=== PATIENT | male | born 1985 | race African-American/Black ===

== ENCOUNTER 2016-10-15 11:49 | Emergency (ER) | payer SELFPAY ==
[2016-10-15] MEDS ORDERED: AZITHROMYCIN 250 MG TABLET PO ONE (14:14)
[2016-10-15] MEDS ORDERED: CEFTRIAXONE INJ 250 MG VIAL IM ONE (14:14)
[2016-10-15] MEDS ORDERED: LIDOCAINE 1% INJ-PF (10 MG/ML) 30 ML SDV INJ ONE (14:14)
--- NOTE | 2016-10-15 14:21 | ER Document Report ---
ED GI/ - General Chief Complaint: Pain With Urination Stated Complaint: URINARY PROBLEMS Time Seen by Provider: 10/15/16 13:43 Mode of Arrival: Ambulatory Information source: Patient Notes: 31-year-old male presents to ED for pain with urination bilateral pelvic pain and swelling to pelvic area and penile discharge. TRAVEL OUTSIDE OF THE [place] IN LAST 30 DAYS: No - HPI Patient complains to provider of: Groin pain, Other - Penile pain. pain penile discharge Onset: Last week Timing/Duration: Gradual Quality of pain: Pressure, Sharp Severity at maximum: Moderate Severity in ED: Moderate Pain Level: 4 Location: Pelvis, Other - Penile pain and drainage Sexual history: Active, Unprotected intercourse Associated symptoms: Penile discharge Exacerbated by: Movement, Walking Relieved by: Denies Similar symptoms previously: Yes Recently seen / treated by doctor: No - Related Data Allergies/Adverse Reactions: No Known Allergies Allergy (Verified 10/15/16 11:55) Past Medical History - General Information source: Patient - Social History Smoking Status: Current Every Day Smoker Cigarette use (# per day): Yes - 1/2 Pack per day Chew tobacco use (# tins/day): No Smoking Education Provided: Yes - less than 2 minutes Frequency of alcohol use: None Drug Abuse: None Lives with: Spouse/Significant other Family History: Arthritis, CVA, Hyperlipidemia. denies: CAD, COPD, DM, Hypertension, Malignancy, Thyroid Disfunction Patient has suicidal ideation: No Patient has homicidal ideation: No - Past Medical History Cardiac Medical History: Reports: None Pulmonary Medical History: Reports: Hx Pneumonia EENT Medical History: Reports: None Neurological Medical History: Reports: None Endocrine Medical History: Reports: None Renal/ Medical History: Reports: None Malignancy Medical History: Reports None GI Medical History: Reports: None Musculoskeltal Medical History: Reports None Skin Medical History: Reports None Psychiatric Medical History: Reports: None Traumatic Medical History: Reports: None Infectious Medical History: Reports: None Surgical Hx: Negative Past Surgical History: Reports: None - Immunizations Hx Diphtheria, Pertussis, Tetanus Vaccination: No Review of Systems - Review of Systems Constitutional: No symptoms reported EENT: No symptoms reported Cardiovascular: No symptoms reported Respiratory: No symptoms reported Gastrointestinal: No symptoms reported Genitourinary: No symptoms reported Male Genitourinary: Penile discharge, Other - Pain groin Musculoskeletal: No symptoms reported Skin: No symptoms reported Hematologic/Lymphatic: No symptoms reported Neurological/Psychological: No symptoms reported -: Yes All other systems reviewed and negative Physical Exam - Vital signs Vitals: Temp Pulse Resp BP Pulse Ox 97.7 F 58 L 16 125/65 97 10/15/16 11:55 10/15/16 11:55 10/15/16 11:55 10/15/16 11:55 10/15/16 11:55 Interpretation: Normal - General General appearance: Appears well, Alert - HEENT Head: Normocephalic, Atraumatic Eyes: Normal Pupils: PERRL - Respiratory Respiratory status: No respiratory distress Chest status: Nontender Breath sounds: Normal Chest palpation: Normal - Cardiovascular Rhythm: Regular Heart sounds: Normal auscultation Murmur: No - Abdominal Inspection: Normal Distension: No distension Bowel sounds: Normal Tenderness: Nontender Organomegaly: No organomegaly - Genitourinary Inspection: Penile discharge Tenderness: Nontender, Epididymis tender Cremasteric reflex: Normal Scrotum: Normal - Back Back: Normal, Nontender - Extremities General upper extremity: Normal inspection, Nontender, Normal color, Normal ROM , Normal temperature General lower extremity: Normal inspection, Nontender, Normal color, Normal ROM , Normal temperature, Normal weight bearing. No: Erin's sign - Neurological Neuro grossly intact: Yes Cognition: Normal Orientation: AAOx4 Scuddy Coma Scale Eye Opening: Spontaneous Leisa Coma Scale Verbal: Oriented Leisa Coma Scale Motor: Obeys Commands Leisa Coma Scale Total: 15 Speech: Normal Motor strength normal: LUE, RUE, LLE, RLE Sensory: Normal - Psychological Associated symptoms: Normal affect, Normal mood - Skin Skin Temperature: Warm Skin Moisture: Dry Skin Color: Normal Course - Re-evaluation Re-evalutation: 10/15/16 16:52 Discussed ultrasound and lab results with patient. Patient was treated with Rocephin and azithromycin for his GC and chlamydia. Patient was instructed no sexual intercourse with his partner until they have both been treated and waited 48 hours. Patient instructed to please use protection in the future to prevent this. - Vital Signs Vital signs: Temp Pulse Resp BP Pulse Ox 97.7 F 58 L 16 125/65 97 10/15/16 11:55 10/15/16 11:55 10/15/16 13:55 10/15/16 11:55 06/05/17 11:55 - Laboratory Laboratory results interpreted by me: 10/15/16 14:20 Chlamydia DNA (PCR) DETECTED H N.gonorrhoeae DNA (PCR) DETECTED H - Diagnostic Test Radiology reviewed: Image reviewed, Reports reviewed Discharge - Discharge Clinical Impression: Epididymitis, Epididymal cyst, Acute gonorrhea of genitourinary tract, Chlamydia Condition: Stable Disposition: HOME, SELF-CARE Instructions: Family Physicians / Practices Additional Instructions: Epididymitis You have epididymitis. This is an inflammation of the organ just behind the testicle, called the epididymis. It can be due to infection in the bladder or prostate. Many cases are simply inflammation and are not caused by germs. Epididymitis often develops after heavy lifting or vigorous exercise. Antibiotics and antiinflammatory medication are often prescribed. Elevation of the scrotum with a jock-strap or tight briefs will help with the pain. Pain medication may be required. Either cold packs or warm sitz baths can help with the pain -- ask your doctor which he recommends for your case. It may take 10 to 14 days until the pain is gone. Avoid heavy lifting during this time. Call the doctor or go to the hospital if you develop fever, increasing pain , or severe swelling, or if you fail to improve as expected. Rocephin You have been given an injection of an antibiotic called Rocephin ( ceftriaxone). Sometimes the injection must be combined with antibiotic pills. For some infections, such as an uncomplicated ear infection, Rocephin provides all the antibiotic that's needed. The antibiotic will be in your body for about two days. For serious infections, we usually repeat doses of Rocephin daily. Side effects are very unusual following a shot. Women may develop vaginal yeast infections, and babies can get yeast (thrush) in the mouth following the use of antibiotics. Contact your physician if you have symptoms with this medication. Allergy to this antibiotic can result in hives, wheezing, faintness, or itching. If symptoms of allergy occur, call the doctor at once. AZITHROMYCIN: Azithromycin (Zithromax) is a broad spectrum antibiotic in the same class as erythromycin. It can treat a variety of bacterial infections, but is most frequently used for respiratory infections. Azithromycin is extremely long-lasting. It accumulates in body tissues and continues to kill bacteria for many days. In order to improve absorption, Azithromycin should be taken at least one hour before or two hours after a meal. It does not have the same strong tendency to upset the stomach as erythromycin and is usually very well tolerated. Patients who have had a rash or other true allergic reactions to erythromycin should not take this medication. Call if you develop gastrointestinal distress, severe diarrhea, rash, hives, itching, or shortness of breath. FOLLOW-UP CARE: If you have been referred to a physician for follow-up care, call the physician s office for an appointment as you were instructed or within the next two days. If you experience worsening or a significant change in your symptoms, notify the physician immediately or return to the Emergency Department at any time for re-evaluation. Forms: Smoking Cessation Education
[2016-10-15 14:58] LABS: APPEARANCE,URINE CLEAR; BILIRUBIN,URINE NEGATIVE (NEGATIVE); GLUCOSE, URINE NEGATIVE (NEGATIVE); KETONES,URINE NEGATIVE (NEGATIVE); LEUKOCYTE ESTERASE,URINE NEGATIVE (NEGATIVE); NITRITE,URINE NEGATIVE (NEGATIVE); PROTEIN,URINE NEGATIVE (NEGATIVE); URINE SPECIFIC GRAVITY 1.014; UROBILINOGEN,URINE NEGATIVE mg/dL (<2.0)
--- NOTE | 2016-10-15 15:52 | RADIOLOGY REPORT (SQ) ---
EXAM DESCRIPTION: U/S SCROTUM W/O DOPPLER COMPLETED DATE/TIME: 10/15/2016 3:26 pm REASON FOR STUDY: minimal swelling and pain to groin COMPARISON: None. TECHNIQUE: Static and realtime pearson scale imaging of the scrotum and testes. Selected color Doppler and spectral images recorded to document blood flow. LIMITATIONS: None. FINDINGS: RIGHT: TESTICLE: Normal size, 39 x 28 x 20 mm. . Normal echotexture. Normal blood flow. No mass. EPIDIDYMIS: 8 x 10 x 12 mm. There is a 3 x 5 x 2 mm epididymal cyst. HYDROCELE OR VARICOCELE: No. HERNIA OR EXTRA-TESTICULAR MASS: No. OTHER: There is 11 x 18 x 6 mm hypoechoic area density just superior to the right testis with mobile debris within it. LEFT: TESTICLE: Normal size, 39 x 25 x 20 mm. Normal echotexture. Normal blood flow. No mass. There are couple small echogenic foci. The largest measures 2 mm. EPIDIDYMIS: Normal. 9 x 15 x 10 mm. HYDROCELE OR VARICOCELE: No. HERNIA OR EXTRA-TESTICULAR MASS: No. OTHER: There are lymph nodes in the left groin that are enlarged in the area the patient's complaint. IMPRESSION: 1. There is a small right epididymal cyst. 2. There is a small hypoechoic area containing mobile debris adjacent to the right testicle. This i s of uncertain etiology. Is there a history of prior trauma? If so, I suppose it could represent a resolving hematoma. 3. There may be a couple small calcifications in the left testicle. 4. There appear to be some enlarged lymph nodes in the left groin. TECHNICAL DOCUMENTATION: JOB ID: [id number]- All Rights Reserved
[2016-10-15 16:22] LABS: CHLAM PCR DETECTED (NOT DETECT)
[2016-10-15 16:57] VITALS: BP 118/62
== END 2016-10-15 16:40 | disposition home or self-care (01) ==
LOC: ER 11:49
DX: A54.23 Gonococcal infection of other male genital organs (principal); A56.19 Other chlamydial genitourinary infection; N50.3 Cyst of epididymis; F17.210 Nicotine dependence, cigarettes, uncomplicated
CPT/HCPCS: 99284; 96372; 81001; 87491; 87591; 76870; J3490; J0696

== ENCOUNTER 2017-08-06 10:26 | Emergency (ER) | payer SELFPAY ==
[2017-08-06 10:35] VITALS: BP 132/73
--- NOTE | 2017-08-06 11:00 | ER Document Report ---
ED Head/Face/Scalp Injury - General Chief Complaint: Head Injury Stated Complaint: HEAD PAIN Time Seen by Provider: 08/06/17 10:39 Mode of Arrival: Ambulatory Information source: Patient TRAVEL OUTSIDE OF THE [place] IN LAST 30 DAYS: No - HPI Patient complains to provider of: Other - headache Notes: Patient is here with complaints of a head injury that occurred 4 years ago. States that he was working on a car when he slipped and fell forward and hit his head on the [place]. This caused a small laceration to the forehead. He was never seen or evaluated for in the laceration had healed. He is on a blood thinners. He did not lose consciousness when the injury occurred. States since that time he has had occasional headaches around the site of the injury. He denies any significant headache currently. He also states that the area swelled up at one point and he was able to express some infectious type material from it. This was a long time ago and has not occurred again. He denies any blurred or loss vision. He denies blood thinners. He denies unilateral numbness, tingling, weakness. He denies fever. He denies chest pain or shortness of breath. 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 - Related Data Allergies/Adverse Reactions: No Known Allergies Allergy (Verified 08/06/17 10:30) Past Medical History - Social History Smoking Status: Current Every Day Smoker Chew tobacco use (# tins/day): No Frequency of alcohol use: None Drug Abuse: None Family History: Arthritis, CVA, Hyperlipidemia. denies: CAD, COPD, DM, Hypertension, Malignancy, Thyroid Disfunction Patient has suicidal ideation: No Patient has homicidal ideation: No Pulmonary Medical History: Reports: Hx Pneumonia Renal/ Medical History: Denies: Hx Peritoneal Dialysis - Immunizations Hx Diphtheria, Pertussis, Tetanus Vaccination: No Review of Systems - Review of Systems -: Yes All other systems reviewed and negative Physical Exam - Vital signs Vitals: Temp Pulse Resp BP Pulse Ox 98.5 F 57 L 16 132/73 H 98 08/06/17 10:32 08/06/17 10:32 08/06/17 10:32 08/06/17 10:32 08/06/17 10:32 - Notes Notes: GENERAL: alert, cooperative, nontoxic, no distress. HEAD: normocephalic, atraumatic. Site of old injury to the forehead. Well- healed scar. I do not appreciate any mass or lesion underneath the scar. There is no tenderness to palpation. There is no redness. EYES: conjunctiva pink without discharge, no external redness or swelling. Pupils are equal, round, reactive to light. EARS: no external swelling, no external redness NOSE: atraumatic, no external swelling MOUTH/THROAT: mucous membranes moist and pink, posterior pharynx without erythema, swelling, exudate. No trismus or drooling. NECK: soft, supple, full range of motion, no meningismus. CHEST: no distress, lungs clear and equal throughout. No wheezing, rales, rhonchi. CARDIAC: regular rate and rhythm, no murmur, normal capillary refill, normal pulses. No peripheral edema noted. BACK: full range of motion, no CVA tenderness. EXTREMITIES: full range of motion of all extremities. No redness, no swelling. NEURO: alert and oriented x 3, cranial nerves II through XII are grossly intact. Upper and lower extremities are equal throughout. Normal sensation. No focal deficits, full range of motion of all extremities. normal finger to nose. PYSCH: appropriate mood, affect. Patient is cooperative. SKIN: pink, warm, dry, no rash. Course - Re-evaluation Re-evalutation: 08/06/17 10:57 Patient is nontoxic appearing with stable vitals. He is here with complaints of pain around a site of an old head injury from 4 years ago. States that he occasionally has headaches around this area and wanted to be evaluated to make sure it was nothing serious. He sustained a head injury which was minor for years ago. There was no loss of consciousness. He has a nonfocal neurological exam at this time. He is having no nausea vomiting or other significant neurological symptoms. There is no signs of infection at this time. Patient requires no significant workup at this time. He will be discharged home with a pleural to primary care as well as neurology. Follow-up for worsening pain, high fever, numbness, tingling, weakness, blurred or loss vision, or for any further concerns. The patient is noted to have elevated blood pressure during today's emergency department visit. The patient was informed of this finding. The patient was instructed that this may be related to pre-hypertension and requires further evaluation with a primary care provider. The patient has no hypertensive symptoms at this time. The patient's emergency department workup and current diagnosis were explained to the patient and or family. Follow-up instructions were provided. Medications if prescribed were discussed. Instructions for when to return to the emergency department including specific worrisome symptoms were discussed with the patient and/or family. - Vital Signs Vital signs: Temp Pulse Resp BP Pulse Ox 98.5 F 57 L 16 132/73 H 98 08/06/17 10:32 08/06/17 10:32 08/06/17 10:32 08/06/17 10:32 08/06/17 10:32 Discharge - Discharge Clinical Impression: Headache Qualifiers: Headache type: unspecified Headache chronicity pattern: episodic headache Intractability: not intractable Qualified Code(s): R51 - Headache Condition: Stable Disposition: HOME, SELF-CARE Instructions: Headache ([facility]) Additional Instructions: Tylenol or Motrin as needed if you are having a headache. Follow-up with primary care or neurology if you continue to have intermittent headaches. Follow-up sooner for worsening pain, high fever, redness, swelling, numbness, tingling, weakness, persistent vomiting, or for any further concerns. Your blood pressure was elevated during today's visit. Have this rechecked with your doctor. Forms: Elevated Blood Pressure Referrals: [facility] [Provider Group] - Follow up as needed LILIA CHU MD [NO LOCAL MD] - Follow up as needed YOLANDA HOGAN MD [EMERITUS] - Follow up as needed
== END 2017-08-06 11:05 | disposition home or self-care (01) ==
LOC: ER 10:26
DX: R51 Headache (principal); R03.0 Elevated blood-pressure reading, without diagnosis of hypertension; F17.200 Nicotine dependence, unspecified, uncomplicated; Z79.01 Long term (current) use of anticoagulants; Z87.828 Personal history of other (healed) physical injury and trauma
CPT/HCPCS: 99283

== ENCOUNTER 2018-08-21 11:54 | Emergency (ER) | payer SELFPAY ==
[2018-08-21 12:09] VITALS: BP 122/70
[2018-08-21] MEDS ORDERED: IBUPROFEN 800 MG TABLET PO ONE (12:16)
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
== END 2018-08-21 13:15 | disposition home or self-care (01) ==
LOC: ER 11:54
DX: S63.91XA Sprain of unspecified part of right wrist and hand, initial encounter (principal); W22.09XA Striking against other stationary object, initial encounter
CPT/HCPCS: 99283

== ENCOUNTER 2019-02-18 06:05 | Emergency (ER) | payer SELFPAY ==
--- NOTE | 2019-02-18 07:57 | ER Document Report ---
ED General - General Chief Complaint: Abdominal Pain Stated Complaint: ABDOMINAL PAIN,NAUSEA,VOMITING Time Seen by Provider: 02/18/19 07:55 Mode of Arrival: Ambulatory Information source: Patient Notes: This 33-year-old male presents emergency department with complaints of abdominal pain nausea vomiting and loose stools that started early this a.m. Reports symptoms started approximately 0400. Reports he thinks it is from eating [employer] last night. Denies fever. No further vomiting since arrival but reports he still feels nauseated and has some abdominal tenderness with palpation. Denies past medical history of chronic abdominal issues. Denies pain with void, denies testicular pain. TRAVEL OUTSIDE OF THE [place] IN LAST 30 DAYS: No - HPI Onset: This morning Quality of pain: Achy Severity: Mild Associated symptoms: Nausea, Vomiting Exacerbated by: Denies Relieved by: Denies Similar symptoms previously: No Recently seen / treated by doctor: No - Related Data Allergies/Adverse Reactions: No Known Allergies Allergy (Verified 02/18/19 06:07) Past Medical History - General Information source: Patient - Social History Smoking Status: Current Every Day Smoker Cigarette use (# per day): Yes Chew tobacco use (# tins/day): No Frequency of alcohol use: Occasional Drug Abuse: None Occupation: [employer] Lives with: Family Family History: Arthritis, CVA, Hyperlipidemia. denies: CAD, COPD, DM, Hypertension, Malignancy, Thyroid Disfunction Patient has suicidal ideation: No Patient has homicidal ideation: No Pulmonary Medical History: Reports: Hx Pneumonia Renal/ Medical History: Denies: Hx Peritoneal Dialysis Surgical Hx: Negative - Immunizations Hx Diphtheria, Pertussis, Tetanus Vaccination: No Review of Systems - Review of Systems Notes: Review HPI for review of systems., All other systems negative Physical Exam - Vital signs Vitals: Temp Pulse Resp Pulse Ox 97.6 F 68 16 99 02/18/19 06:08 02/18/19 06:08 02/18/19 06:08 02/18/19 06:08 - Notes Notes: PHYSICAL EXAMINATION: GENERAL: Well-appearing and in no acute distress HEAD: Atraumatic, normocephalic. EYES: Pupils equal round and reactive to light, extraocular movements intact, sclera anicteric, conjunctiva are normal. ENT: nares patent, oropharynx clear without exudates. Moist mucous membranes. NECK: Normal range of motion, supple without lymphadenopathy LUNGS: CTAB and equal. No wheezes rales or rhonchi. HEART: Regular rate and rhythm without murmurs ABDOMEN: Soft, slight generalized tenderness with palpation. denies RLQ/RUQ pain with palpation, denies LUQ/LLQ pain with palpation, No guarding, no rebound BACK: Denies flank pain EXTREMITIES: Normal range of motion, no pitting edema. No cyanosis. NEUROLOGICAL: Cranial nerves grossly intact. Normal sensory/motor exams. PSYCH: Normal mood, normal affect. SKIN: Warm, Dry, normal turgor, no rashes or lesions noted Course - Re-evaluation Re-evalutation: 02/18/19 09:03 This 33-year-old male that presents emergency department with generalized abdominal pain, vomiting several times and nausea this a.m. with a couple of loose stools. Patient has been had no further symptoms since arrival. All labs unremarkable. Patient was instructed on Zofran. Instructed to start with clear liquids advance diet as tolerated. He verbalized understanding to all instructions. Dictation of this chart was performed using voice recognition software; t herefore, there may be some unintended grammatical errors. 02/18/19 09:08 02/18/19 07:52 02/18/19 07:52 MCV 93 fl (80-97) 02/18/19 07:52 MCH 31.6 pg (27.0-33.4) 02/18/19 07:52 MCHC 34.2 g/dL (32.0-36.0) 02/18/19 07:52 RDW 14.1 % (11.5-14.0) H 02/18/19 07:52 Seg Neutrophils % 59.1 % (42-78) 02/18/19 07:52 Chloride 106 mmol/L (98-107) 02/18/19 07:52 Carbon Dioxide 29 mmol/L (22-30) 02/18/19 07:52 Anion Gap 4 (5-19) L 02/18/19 07:52 Est GFR ( Amer) > 60 (>60) 02/18/19 07:52 Glucose 97 mg/dL (75-110) 02/18/19 07:52 Calcium 9.5 mg/dL (8.4-10.2) 02/18/19 07:52 Total Bilirubin 0.4 mg/dL (0.2-1.3) 02/18/19 07:52 AST 27 U/L (17-59) 02/18/19 07:52 Alkaline Phosphatase 73 U/L (38-126) 02/18/19 07:52 Total Protein 6.7 g/dL (6.3-8.2) 02/18/19 07:52 Albumin 4.0 g/dL (3.5-5.0) 02/18/19 07:52 Lipase 238.7 U/L (23-300) 02/18/19 07:52 Urine Color YELLOW 02/18/19 07:52 Urine Appearance CLEAR 02/18/19 07:52 Urine pH 7.0 (5.0-9.0) 02/18/19 07:52 Ur Specific [place] 1.011 02/18/19 07:52 Urine Protein NEGATIVE mg/dL (NEGATIVE) 02/18/19 07:52 Urine Glucose (UA) NEGATIVE mg/dL (NEGATIVE) 02/18/19 07:52 Urine Ketones NEGATIVE mg/dL (NEGATIVE) 02/18/19 07:52 Urine Blood NEGATIVE (NEGATIVE) 02/18/19 07:52 Urine Nitrite NEGATIVE (NEGATIVE) 02/18/19 07:52 Ur Leukocyte Esterase NEGATIVE (NEGATIVE) 02/18/19 07:52 Urine WBC (Auto) 0 /HPF 02/18/19 07:52 - Vital Signs Vital signs: Temp Pulse Resp BP Pulse Ox 97.6 F 68 16 99 02/18/19 06:08 02/18/19 06:08 02/18/19 06:08 02/18/19 06:08 - Laboratory Result Diagrams: 02/18/19 07:52 02/18/19 07:52 Laboratory results interpreted by me: 02/18/19 02/18/19 07:52 07:52 RDW 14.1 H Anion Gap 4 L Discharge - Discharge Clinical Impression: Abdominal pain Qualifiers: Abdominal location: generalized Qualified Code(s): R10.84 - Generalized abdominal pain Nausea & vomiting Qualifiers: Vomiting type: unspecified Vomiting Intractability: non-intractable Qualified Code(s): R11.2 - Nausea with vomiting, unspecified Condition: Stable Disposition: HOME, SELF-CARE Instructions: Abdominal Pain ([facility]), Antinausea Medication ([facility]), Nausea or Vomiting, Nonspecific ([facility]) Additional Instructions: *You have been evaluated for abdominal pain, nausea/vomiting *Take medication as prescribed for nausea *Over the counter anti-diarrheal as indicated *Ensure adequate fluid intake as discussed to prevent dehydration *Follow up with a primary care provider within one week for recheck *Return to ED for worsening condition, changes, needs, concerns *Return to the ED if not better in 48 hours Forms: Parent Work Note, Return to Work
[2019-02-18 08:12] LABS: ABSOLUTE BASOPHILS # (AUTO) 0.1 10^3/uL (0.0-0.2); ABSOLUTE EOSINOPHILS # (AUTO) 0.3 10^3/uL (0.0-0.6); ABSOLUTE LYMPHOCYTES (AUTO) 2.3 10^3/uL (0.5-4.7); ABSOLUTE MONOCYTES (AUTO) 0.6 10^3/uL (0.1-1.4); ABSOLUTE NEUT (AUTO) 4.7 10^3/uL (1.7-8.2); BASOPHILS % (AUTO) 0.8 % (0-2); EOSINOPHILS % (AUTO) 3.2 % (0-6); HEMATOCRIT 47.7 % (37.9-51.0); HEMOGLOBIN 16.3 g/dL (13.5-17.0); LYMPHOCYTES % (AUTO) 29.1 % (13-45); MEAN CORPUSCULAR HEMOGLOBIN 31.6 pg (27.0-33.4); MEAN CORPUSCULAR HGB CONC 34.2 g/dL (32.0-36.0); MEAN CORPUSCULAR VOLUME 93 fl (80-97); MONOCYTES % (AUTO) 7.8 % (3-13); PLATELET COUNT 279 10^3/uL (150-450); RED BLOOD COUNT 5.16 10^6/uL (4.35-5.55); RED CELL DISTRIBUTION WIDTH 14.1 % (11.5-14.0); SEGMENTED NEUTROPHILS % (AUTO) 59.1 % (42-78); TOTAL CELLS COUNTED % (AUTO) 100 %
[2019-02-18 08:19] LABS: APPEARANCE,URINE CLEAR; BILIRUBIN,URINE NEGATIVE (NEGATIVE); COLOR,URINE YELLOW; GLUCOSE, URINE NEGATIVE (NEGATIVE); KETONES,URINE NEGATIVE (NEGATIVE); LEUKOCYTE ESTERASE,URINE NEGATIVE (NEGATIVE); NITRITE,URINE NEGATIVE (NEGATIVE); PROTEIN,URINE NEGATIVE (NEGATIVE); URINE SPECIFIC GRAVITY 1.011; UROBILINOGEN,URINE NEGATIVE mg/dL (<2.0)
[2019-02-18 08:30] LABS: ALKALINE PHOSPHATASE 73 U/L (38-126); ASPARTATE AMINO TRANSFERASE 27 U/L (17-59); BILIRUBIN,DIRECT 0.1 mg/dL (0.0-0.4); BILIRUBIN,TOTAL 0.4 mg/dL (0.2-1.3); BLOOD UREA NITROGEN 7 mg/dL (7-20); CALCIUM 9.5 mg/dL (8.4-10.2); CARBON DIOXIDE 29 mmol/L (22-30); CHLORIDE 106 mmol/L (98-107); GLUCOSE 97 mg/dL (75-110); POTASSIUM 4.5 mmol/L (3.6-5.0); TOTAL PROTEIN 6.7 g/dL (6.3-8.2)
[2019-02-18] MEDS ORDERED: ONDANSETRON 4 MG TAB.RAPDIS PO ONE (08:32)
[2019-02-18 08:37] LABS: ANION GAP 4 (5-19)
[2019-02-18] MEDS ORDERED: ONDANSETRON ODT 4 MG TAB (6 TAB/ER DISP) PO PRN (09:03)
[2019-02-18 09:15] VITALS: BP 117/69
== END 2019-02-18 09:20 | disposition home or self-care (01) ==
LOC: ER 06:05
DX: R10.84 Generalized abdominal pain (principal); R11.2 Nausea with vomiting, unspecified; F17.210 Nicotine dependence, cigarettes, uncomplicated
CPT/HCPCS: 36415; 83690; 85025; 80053; 81001; S0119; 99284

== ENCOUNTER 2019-10-27 02:27 | Emergency (ER) | payer SELFPAY ==
[2019-10-27] MEDS ORDERED: AZITHROMYCIN 250 MG TABLET PO ONE (03:39)
[2019-10-27] MEDS ORDERED: CEFTRIAXONE INJ 250 MG VIAL IM ONE (03:40)
--- NOTE | 2019-10-27 03:40 | ER Document Report ---
ED General - General Chief Complaint: STD Exposure Stated Complaint: GROIN PAIN [facility] [NO LOCAL MD] - Follow up as needed Notes: 34-year-old male with no pertinent past medical history presents for concern for STI exposure approximately 1 hour prior to arrival to the emergency department. Patient states that he was receiving oral sex by an individual who he states a bad tooth which caused some bleeding onto his skin. Denies any rashes, lesions, penile discharge, pain with urination or additional symptoms. Is desiring prophylaxis for STI TRAVEL OUTSIDE OF THE [place] IN LAST 30 DAYS: No - Related Data Allergies/Adverse Reactions: No Known Allergies Allergy (Verified 10/27/19 02:36) Past Medical History - Social History Smoking Status: Current Every Day Smoker Frequency of alcohol use: None Drug Abuse: Marijuana Family History: Arthritis, CVA, Hyperlipidemia. denies: CAD, COPD, DM, Hypertension, Malignancy, Thyroid Disfunction Patient has homicidal ideation: No Pulmonary Medical History: Reports: Hx Pneumonia Renal/ Medical History: Denies: Hx Peritoneal Dialysis Musculoskeletal Medical History: Reports None - Immunizations Hx Diphtheria, Pertussis, Tetanus Vaccination: No Review of Systems - Review of Systems Constitutional: No symptoms reported EENT: No symptoms reported Cardiovascular: No symptoms reported Respiratory: No symptoms reported Gastrointestinal: No symptoms reported Genitourinary: No symptoms reported Male Genitourinary: No symptoms reported Skin: No symptoms reported Hematologic/Lymphatic: No symptoms reported Physical Exam - Vital signs Vitals: Temp Pulse Resp BP Pulse Ox 97.7 F 69 16 125/69 99 10/27/19 02:32 10/27/19 02:32 10/27/19 02:32 10/27/19 02:32 10/27/19 02:32 Interpretation: Normal - Notes Notes: Chaperoned by Erwin MAYER for physical exam Adult General: GENERAL: Alert, interacts well. No acute distress HEAD: Normocephalic, atraumatic EYES: Extraocular movements intact. ENT: Airway patent. Nares patent. GENITOURINARY: No rashes, no lesions, no tenderness, no penile discharge. EXTREMITIES: Moves all 4 extremities spontaneously. No edema, normal radial and dorsal pedis pulses bilaterally. No cyanosis. BACK: Moves all extremities with full range of motion. NEUROLOGICAL: Alert and oriented x3. Normal speech. PSYCH: Normal affect, normal mood. SKIN: Warm, dry, normal turgor. No rashes or lesions noted. Course - Re-evaluation Re-evalutation: 10/27/19 03:46 Discussed with patient that he should wait to have an STI check longer than 1 hour after having concern for possible exposure. Discussed with patient that I am comfortable providing prophylactic medication for gonorrhea and chlamydia at this time and that he should follow-up with the health clinic for testing. He can also follow-up with the emergency department if he develops symptoms. Patient is in agreement with plan and verbalizes understanding of plan. You have been treated for initial possible exposure to an STD. Avoid sexual intercourse for 1 week. My recommendation is to follow-up with the health department referral, call for your follow-up, please do this closely for testing for blood-borne illnesses including HIV and hepatitis. - Vital Signs Vital signs: Temp Pulse Resp BP Pulse Ox 97.7 F 69 16 125/69 99 10/27/19 02:37 10/27/19 02:32 10/27/19 02:32 10/27/19 02:32 10/27/19 02:32 Discharge - Discharge Clinical Impression: Possible exposure to STD Condition: Stable Disposition: HOME, SELF-CARE Additional Instructions: You have been treated for initial possible exposure to an STD. Avoid sexual intercourse for 1 week. My recommendation is to follow-up with the health department referral, call for your follow-up, please do this closely for testing for blood-borne illnesses including HIV and hepatitis. [facility] [[facility]] - Follow up as needed
[2019-10-27] MEDS ORDERED: LIDOCAINE 1% INJ-PF (10 MG/ML) 30 ML SDV ONE (04:22)
[2019-10-27 05:34] VITALS: BP 128/70
== END 2019-10-27 04:30 | disposition home or self-care (01) ==
LOC: ER 02:27
DX: Z20.2 Contact with and (suspected) exposure to infections with a predominantly sexual mode of transmission (principal); F17.200 Nicotine dependence, unspecified, uncomplicated; F12.10 Cannabis abuse, uncomplicated
CPT/HCPCS: 99283; 96372; J3490; J0696

== ENCOUNTER 2019-10-28 11:17 | Emergency (ER) | payer SELFPAY ==
[2019-10-28 11:25] VITALS: BP 120/90
--- NOTE | 2019-10-28 11:46 | ER Document Report ---
HPI - HPI Time Seen by Provider: 10/28/19 11:32 Context: Patient is a 34-year-old male who presents emergency department to be tested for STDs. He was here in the emergency department little over 24 hours ago and was treated for gonorrhea and chlamydia. About an hour prior to his previous visit, he was given oral sex. Patient states that he was not tested. Records show that he did not have a urine sample. Patient denies any pain, penile discharge, or any other symptoms. - ROS Systems Reviewed and Negative: Yes All other systems reviewed and negative - RESPIRATORY Respiratory: DENIES: Trouble Breathing, Coughing - GASTROINTESTINAL Gastrointestinal: DENIES: Abdominal Pain, Nausea, Patient vomiting, Diarrhea - URINARY Urinary: DENIES: Dysuria, Urgency, Frequency - REPRODUCTIVE Reproductive: DENIES: : - MUSCULOSKELETAL Musculoskeletal: DENIES: Extremity pain - DERM Skin Color: Normal Skin Problems: None Past Medical History - General Information source: Patient - Social History Smoking Status: Unknown if Ever Smoked Family History: Arthritis, CVA, Hyperlipidemia. denies: CAD, COPD, DM, Hypertension, Malignancy, Thyroid Disfunction Pulmonary Medical History: Reports: Hx Pneumonia Renal/ Medical History: Denies: Hx Peritoneal Dialysis - Immunizations Hx Diphtheria, Pertussis, Tetanus Vaccination: No Vertical Provider Document - CONSTITUTIONAL Agree With Documented VS: Yes Exam Limitations: No Limitations General Appearance: No Apparent Distress - INFECTION CONTROL TRAVEL OUTSIDE OF THE [place] IN LAST 30 DAYS: No - HEENT HEENT: Atraumatic, Normocephalic - NECK Neck: Normal Inspection - RESPIRATORY Respiratory: No Respiratory Distress - CARDIOVASCULAR Cardiovascular: Regular Rate, Regular Rhythm Pulses: Normal: Radial - GI/ABDOMEN Gastrointestinal: Abdomen Soft, Abdomen Non-Tender - MUSCULOSKELETAL/EXTREMETIES Musculoskeletal/Extremeties: FROM - NEURO Level of Consciousness: Awake, Alert, Appropriate - DERM Integumentary: Warm, Dry, No Rash Course - Re-evaluation Re-evalutation: 10/28/19 12:17 Urinalysis is unremarkable. Gonorrhea chlamydia are not back yet. Patient will follow-up with the health department in regards to further testing for HIV and other communicable diseases. 14:50 Reviewed the patient's chart. Patient is positive for chlamydia. He was already treated for this. Patient agrees to not have sex for a week and to also use protection. - Vital Signs Vital signs: Temp Pulse Resp BP Pulse Ox 98.6 F 71 16 120/90 H 98 10/28/19 11:24 10/28/19 11:24 10/28/19 11:24 10/28/19 11:24 10/28/19 11:24 Discharge - Discharge Clinical Impression: Possible exposure to STD Condition: Stable Disposition: HOME, SELF-CARE Additional Instructions: You need to use protection every time you have sex. Failure to do so can result in transmission of infections or unintended . You were treated the other day for gonorrhea and chlamydia. Follow-up with the health department for further testing for HIV. Please return if you develop abdominal pain, fever, persistent vomiting, or any other symptoms that are concerning to you.
[2019-10-28 12:07] LABS: APPEARANCE,URINE CLEAR; BILIRUBIN,URINE NEGATIVE (NEGATIVE); COLOR,URINE YELLOW; GLUCOSE, URINE NEGATIVE (NEGATIVE); KETONES,URINE NEGATIVE (NEGATIVE); PROTEIN,URINE NEGATIVE (NEGATIVE); URINE SPECIFIC GRAVITY 1.018; UROBILINOGEN,URINE NEGATIVE mg/dL (<2.0)
[2019-10-28 13:25] LABS: CHLAM PCR DETECTED (NOT DETECT)
== END 2019-10-28 12:17 | disposition home or self-care (01) ==
LOC: ER 11:17
DX: Z20.2 Contact with and (suspected) exposure to infections with a predominantly sexual mode of transmission (principal)
CPT/HCPCS: 81001; 87491; 87591; 99283